=== PATIENT | male | born 1950 | race Caucasian/White ===

== ENCOUNTER → 2021-11-20 | Outpatient (CLI) | payer OTHER | LOC: SJCVCIMAG 14:37 → SJCVC 14:37 | PROVIDERS: ATTEND Internal Medicine Cardiovascular Disease | DX: I08.1 Rheumatic disorders of both mitral and tricuspid valves (principal); R94.31 Abnormal electrocardiogram [ECG] [EKG]; I45.10 Unspecified right bundle-branch block; I44.0 Atrioventricular block, first degree; I44.2 Atrioventricular block, complete; I47.1 Supraventricular tachycardia; I47.2 Ventricular tachycardia; R55 Syncope and collapse; I11.9 Hypertensive heart disease without heart failure; E03.9 Hypothyroidism, unspecified; M17.0 Bilateral primary osteoarthritis of knee; E66.09 Other obesity due to excess calories; Z68.39 Body mass index [BMI] 39.0-39.9, adult; Z79.899 Other long term (current) drug therapy; Z87.891 Personal history of nicotine dependence ==

== ENCOUNTER 2021-11-24 08:49 | Observation (INO) | payer OTHER ==
[~2021-11-24] VITALS: Ht 185.4 cm; Wt 137.0 kg
[2021-11-24] VITALS (10 sets, daily range): BP systolic 118–139; BP diastolic 43–89
--- NOTE | ~2021-11-24 | P ---
[facility] [place] [address] PROCEDURE REPORT Name: GYPSY NIXON Room #: [address] [place] [address] Charlotte Morgan#: [id number] Admission: 11/24/21 Attend Phys: Seymour Levy MD Discharge: 11/25/21 Date of : 50 Report #: [id number] THIS REPORT FOR: cc: FAM - Clinic physician unknown FAM - Family physician unknown Seymour Levy MD ~ DATE OF SERVICE: 11/24/2021 EP STUDY AND PACEMAKER IMPLANTATION PROCEDURES PERFORMED: 1. Comprehensive EP study with induction, CPT code 45966. 2. Program stimulation pacing after IV drug infusion, CPT code 48254. 3. Dual-chamber pacemaker implantation, CPT code 99341. PREOPERATIVE DIAGNOSES: 1. Presyncope. 2. Intermittent complete heart block. 3. Nonsustained ventricular tachycardia. POSTOPERATIVE DIAGNOSES: 1. Presyncope. 2. Intermittent complete heart block. 3. Nonsustained ventricular tachycardia. HISTORY: The patient is a 71-year old with multiple recurrent episodes of near syncope, who wore a cardiac monitor technician demonstrating periods of symptomatic complete heart block. There was also evidence of nonsustained VT. His ejection-fraction on echocardiogram was normal. He is here for EP study, possible pacemaker, possible defibrillator implantation. DESCRIPTION OF PROCEDURE: The patient was brought to the EP laboratory in a fasting and nonsedated state, prepped and draped in a standard fashion. In the right femoral vein, I placed three 6-Icelandic short sheaths using the modified Seldinger technique. Under fluoroscopy, I placed 3 quadripolar catheters at the HRA, His and RV positions. A basic EP study was performed. At baseline, the patient was in sinus rhythm, sinus cycle length of 850 milliseconds, NE interval of 250 milliseconds, QRS duration of 110 milliseconds, QT interval of 40 milliseconds, AH interval of 95 milliseconds, and HV interval of 92 milliseconds. Atrial burst pacing was performed and AV block was noted at 370 milliseconds. Atrial ERP was 290 milliseconds at a [address] cycle length and VA block was noted at 480 milliseconds. VA ERP was at 450 milliseconds at a [address] cycle length and ventricular ERP was noted at 230 milliseconds at a [address] cycle length. Ventricular stimulation was performed at both cycle lengths of 500 and 400 milliseconds and there was no inducible VT. Isoproterenol infusion was started [facility] [address] [place] [address] PROCEDURE REPORT Name: GYPSY NIXON Room #: 212-P NICK Morgan#: [id number] Admission: 11/24/21 Attend Phys: Seymour Levy MD Discharge: 11/25/21 Date of : 50 Report #: [id number] at 2 mcg per minute. AV block was noted at 380 milliseconds. Atrial ERP was noted at 200 milliseconds at [address] cycle length. VSTIM was performed at [address] cycle length and again there was no inducible VT. 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 Pacemaker implantation: The patient was then prepped for pacemaker implantation. The patient received IV antibiotics, underwent a venogram showing patency of left axillary vein. Lidocaine was injected below the level of left clavicle. Incision was made, pocket created over the prepectoral fascia and access was obtained twice to left axillary vein using the extrathoracic approach. Sheaths were positioned using the modified Seldinger technique. Next, a lead was positioned in the right ventricle and right atrium, both with adequate pacing and sensing thresholds. The leads were sutured to the prepectoral fascia. Device connected, tug test performed and then pocket was irrigated with vancomycin. Pocket closed in 2 layers. Surgical glue placed to the outer skin layer. The patient awoke neurologically and hemodynamically intact. No complications and no significant bleeding. The implanted pacemaker was a Medtronic model number [id number], serial number [id number], atrial lead was a 5076, 52 cm, serial number [id number]. The RV lead was a 5076, serial number [id number]. Atrial lead demonstrated a P-wave of 4.3 millivolts, pacing impedance of 650 ohms, pacing threshold of 1 volt at 0.4 milliseconds. RV lead demonstrated R waves of 7.5 millivolts, pacing impedance of 976 ohms, pacing threshold of 0.4 volts at 0.4 milliseconds. The device was programmed to the AAIR/DDDR 60-130 mode. CONCLUSION: 1. Abnormal EP study with evidence of a severe infra-Hisian disease. 2. No other inducible arrhythmias on or off isoproterenol. 3. Successful dual-chamber pacemaker implantation with satisfactory atrial and ventricular pacing and sensing thresholds. By: [id number] Seymour Levy MD /nt
[2021-11-24 10:13] LABS: ABSOLUTE NEUTROPHILS 4.9 thou/uL (1.4-8.2); BASOPHILS 0.3 % (0.0-2.0); HEMATOCRIT 50.2 % (42.0-52.0); HEMOGLOBIN 16.8 gm/dL (14.0-18.0); MCH 29.8 pg (26.0-34.0); MCHC 33.5 g/dL (28.0-37.0); MCV 89.2 fL (80.0-100.0); MONOCYTES 12.1 % (1.0-8.0); PLATELET COUNT 192 thou/uL (150-400); POLYS 52.6 % (36.0-66.0); RBC 5.63 mil/uL (4.50-6.00); RDW 13.7 % (10.5-14.5); WBC 9.3 thou/uL (4.0-11.0)
[2021-11-24] MEDS ORDERED: SYNTHROID88 MC1 PO (10:25)
[2021-11-24] MEDS ORDERED: NAPROXEN SODIU220 M2 PO (10:26)
[2021-11-24 10:29] LABS: APTT 30.1 Seconds (24.5-32.8); PROTIME 10.9 Seconds (10.5-12.1)
[2021-11-24 10:30] LABS: CALCIUM 9.5 mg/dL (8.5-10.1); CREATININE 1.2 mg/dL (0.7-1.3); POTASSIUM 4.6 mmol/L (3.5-5.1)
[2021-11-24 10:35] LABS: ALBUMIN 4.3 g/dL (3.4-5.0); TOTAL BILIRUBIN 0.7 mg/dL (0.2-1.0); TOTAL PROTEIN 8.2 g/dL (6.4-8.2)
--- NOTE | 2021-11-24 19:02 | NUR ---
Pt went for cardioversion 0730am to correct AFIB. When pt returned to unit VS were stable; pt was on 2L O2 for comfort. Around noon pt was difficult to rouse, desaturating and body was cold; Oral temp was 94.4. Rapid Response was called; pt was given 0.4ml of narcan to reverse effects of sedatives given during cardioversion; Bear hugger was in place; rectal temperatur was 98.1; pt was placed on O2 mask and sats reggie to > 95% Pt was monitored every 15mins and within an hour 02 saturation was >95%; Pt was alert and oriented and ate lunch. Daughter was at bedside and was that pt had fallen alseep after lunch and was still asleep at 1600; Pt was assessed and pt was A&0x4, VS all stable and pt was able to follow commands and move all extremities. Hospitalist was informed and he said to let pt sleep and try to get her up for dinner, then reassess. At dinner pt was fully awake. No current concerns. Continue to monitor
--- NOTE | 2021-11-24 20:20 | NUR ---
Assumed care of pt at 1630. Pt has been A&0x4, VS stable and afebrile. Right groin site is C/D/I. No complaints of pain other than a headache which was alleviated by tylenol. Bedrest ended at 1800 and pt is up ad robbin in room. No current concerns. Continue to monitor.
[2021-11-25 04:00] VITALS: BP 135/86
[2021-11-25 04:40] VITALS: BP 152/109
[2021-11-25 07:35] VITALS: BP 111/76
[2021-11-25 10:25] VITALS: BP 111/76
--- NOTE | 2021-11-25 11:22 | NUR ---
patient safely discharged home with . IV'S WERE REMOVED AND PATIENT IS IN NO ACUTE DISTRESS.
== END 2021-11-25 12:54 | disposition home or self-care (01) ==
LOC: CATH 08:49 → TBA 09:31 → 2N 09:31 → CATH 13:39 → 2N 17:44
PROVIDERS: ADMIT Internal Medicine Cardiovascular Disease; ATTEND Internal Medicine Cardiovascular Disease
DX: I44.2 Atrioventricular block, complete (principal); I47.1 Supraventricular tachycardia; I47.2 Ventricular tachycardia; I49.5 Sick sinus syndrome; R55 Syncope and collapse; Z20.822 Contact with and (suspected) exposure to COVID-19; I10 Essential (primary) hypertension; E03.9 Hypothyroidism, unspecified; E66.09 Other obesity due to excess calories; Z68.39 Body mass index [BMI] 39.0-39.9, adult; Z87.891 Personal history of nicotine dependence; Z79.899 Other long term (current) drug therapy
CPT/HCPCS: 62110; 62900

== ENCOUNTER → 2021-12-02 | Outpatient (CLI) | payer OTHER ==
[~2021-12-02] MED LIST: NAPROXEN SODIU220 M2 PO; SYNTHROID88 MC1 PO
== END ==
LOC: CAT 11:14
PROVIDERS: ATTEND Internal Medicine Cardiovascular Disease
DX: Z13.6 Encounter for screening for cardiovascular disorders (principal); E78.00 Pure hypercholesterolemia, unspecified; I25.10 Atherosclerotic heart disease of native coronary artery without angina pectoris

== ENCOUNTER → 2021-12-02 | Outpatient (CLI) | payer OTHER | LOC: SJCVC 10:10 | PROVIDERS: ATTEND Internal Medicine Cardiovascular Disease | DX: I44.2 Atrioventricular block, complete (principal); R55 Syncope and collapse; R06.00 Dyspnea, unspecified; I10 Essential (primary) hypertension; E03.9 Hypothyroidism, unspecified; E66.01 Morbid (severe) obesity due to excess calories; Z95.0 Presence of cardiac pacemaker; Z82.49 Family history of ischemic heart disease and other diseases of the circulatory system; Z87.891 Personal history of nicotine dependence; Z79.899 Other long term (current) drug therapy ==